=== PATIENT | female | born 1990 | race Caucasian/White ===

== ENCOUNTER 2017-10-01 22:25 | Emergency (ER) | payer SELFPAY ==
[2017-10-01 22:39] VITALS: BP 99/63; PULSE 84; RESP 14; TEMP 97.9; O2SAT 99
[2017-10-01 23:16] LABS: SQUAMOUS EPITHIAL 6 /hpf (0-5); URINE BACTERIA OCC (<OCC); URINE BILIRUBIN NEGATIVE (NEGATIVE); URINE BLOOD 1+ (NEGATIVE); URINE CLARITY Hazy (Clear); URINE COLOR Yellow (YELLOW); URINE GLUCOSE (UA) NORMAL (Normal); URINE LEUKOCYTE ESTERASE 1+ Leu/uL (Negative); URINE PROTEIN NEGATIVE (NEGATIVE); URINE UROBILINOGEN NORMAL mg/dL (0.2-1.0)
[2017-10-01 23:17] LABS: HCG,QUALITATIVE URINE NEGATIVE (NEGATIVE)
--- NOTE | 2017-10-01 23:54 | C.PDOC ---
History Of Present Illness 27 y/o female presents to ED for complaints of intermittent suprapubic abdominal pain associated with dysuria that began 3 weeks ago. Patient also reports experiencing frequency that began 2 days ago. Patient states pain worsened 2 days ago which prompted the ER visit. Patient also reports last bowel movement was 2 days ago and is requesting medications for constipation. Denies nausea, vomiting, or back pain. Time Seen by Provider: 10/01/17 22:54 Chief Complaint (Nursing): Female Genitourinary History Per: Patient History/Exam Limitations: no limitations Onset/Duration Of Symptoms: Days Current Symptoms Are (Timing): Still Present Associated Symptoms: Constipation, Urinary Symptoms. denies: Fever, Chills, Nausea, Vomiting, Diarrhea Alleviating Factors: None Recent travel outside of the [place]: No Abnormal Vaginal Bleeding: No Past Medical History Reviewed: Historical Data, Nursing Documentation, Vital Signs Vital Signs: Last Vital Signs Temp 97.9 F 10/01/17 22:37 Pulse 84 10/01/17 22:37 Resp 14 10/01/17 22:37 BP 99/63 L 10/01/17 22:37 Pulse Ox 99 10/02/17 01:28 - Medical History PMH: No Chronic Diseases Surgical History: No Surg Hx Family History: States: Unknown Family Hx - Social History Hx Alcohol Use: No Hx Substance Use: No - Immunization History Hx Influenza Vaccination: No Review Of Systems Constitutional: Negative for: Fever, Chills Gastrointestinal: Positive for: Abdominal Pain (Suprapubic ), Constipation. Negative for: Nausea, Vomiting, Diarrhea Genitourinary: Positive for: Dysuria, Frequency Skin: Negative for: Rash Neurological: Negative for: Weakness, Numbness Physical Exam - Physical Exam Appears: Well, Non-toxic, No Acute Distress Skin: Normal Color, Warm, Dry Head: Atraumatic, Normacephalic Eye(s): bilateral: Normal Inspection, PERRL, EOMI Oral Mucosa: Moist Neck: Supple Chest: Symmetrical, No Tenderness Cardiovascular: Rhythm Regular Respiratory: Normal Breath Sounds, No Decreased Breath Sounds Gastrointestinal/Abdominal: Soft, Tenderness (Minimal suprapubic ) Back: Normal Inspection, No CVA Tenderness Extremity: Normal ROM Extremity: Bilateral: Atraumatic, Normal Color And Temperature, Normal ROM Neurological/Psych: Oriented x3, Normal Speech Gait: Steady ED Course And Treatment O2 Sat by Pulse Oximetry: 99 (RA) Pulse Ox Interpretation: Normal Progress Note: Ordered UA and Urine culture. Patient was found positive for UTI. Administered pyridium and Macrobid. Upon re-evaluation Patient is feeling better, is medically stable, and requires no further treatment in the ED at this time. Counseling was provided to patient and all questions were answered regarding diagnosis and need for follow up. There is agreement to discharge plan. Return if symptoms persist or worsen. Disposition Counseled Patient/Family Regarding: Diagnosis, Need For Followup - Disposition Referrals: [facility] [Outside] Disposition: HOME/ ROUTINE Disposition Time: 23:51 Condition: STABLE Additional Instructions: Increase PO fluids Take medications as directed Return to ER if fever, vomiting, back pain or worse Prescriptions: Nitrofurantoin Macrocrystals [Macrobid] 1 cap PO BID #14 cap Phenazopyridine HCl [Pyridium] 100 mg PO TID #6 tab Polyethylene Glycol 3350 [Miralax] 17 gm PO DAILY #1 bottle Instructions: Urinary Tract Infection, Adult (DC) Forms: [employer] (Mauritanian) - Clinical Impression Clinical Impression: UTI (urinary tract infection) - PA / 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 - Scribe Statement The provider has reviewed the documentation as recorded by the Tc Castillo All medical record entries made by the Frankibchayo were at my direction and personally dictated by me. I have reviewed the chart and agree that the record accurately reflects my personal performance of the history, physical exam, medical decision making, and the department course for this patient. I have also personally directed, reviewed, and agree with the discharge instructions and disposition.
== END 2017-10-02 00:06 | disposition home or self-care (01) ==
LOC: C.ER 22:25
DX: N39.0 Urinary tract infection, site not specified (principal)